=== PATIENT | male | born 1970 | race Caucasian/White ===

== ENCOUNTER 2018-05-17 05:54 | Inpatient (IN) | payer MEDICAID ==
[~2018-05-17] VITALS: Ht 188 cm; Wt 104.3 kg
[~2018-05-17 05:54] MED LIST: ASPI-612 PO; ATOR20TA PO; CLOP75TA15 PO; LISI-603 PO; METO37.5 PO; OMEP20TA20 PO
--- NOTE | 2018-05-17 06:05 | NUR ---
Patient ambulated in ER with stable gait with the c/o intermittent CP for the past couple of days, SOB and dizziness. Patient is AAO x 4 and speaking in complete sentences. Patient states that he stopped taking his prescribed medications 8 months ago. Patient placed on monitor. Safe environment implemented.
[2018-05-17] MEDS ORDERED: NITROGLYCERIN OINT 1 GM PACKET TP ONE ×2 (06:12→06:15)
[2018-05-17] MEDS ORDERED: NITROGLYCERIN 0.4 MG/TAB BOTTLE SL ONE ×2 (06:12→06:15)
[2018-05-17] MEDS ORDERED: ASPIRIN 81 MG TAB.CHEW ONE (06:12)
[2018-05-17] MEDS ORDERED: ASPIRIN 81 MG TAB.CHEW PO ONE (06:15)
[2018-05-17 06:29] LABS: BASOPHILS # (AUTO) 0.1 K/uL (0.0-8.0); BASOPHILS % (AUTO) 1.3 % (0.0-2.0); EOSINOPHILS # (AUTO) 0.2 K/uL (0.0-0.7); EOSINOPHILS % (AUTO) 2.4 % (0.0-7.0); HEMATOCRIT 47.9 % (36.7-47.1); HEMOGLOBIN 16.5 g/dL (12.5-16.3); LYMPHOCYTES # (AUTO) 2.4 K/uL (20.0-40.0); LYMPHOCYTES % (AUTO) 29.8 % (20.5-51.5); MEAN CORPUSCULAR HEMOGLOBIN 30.9 uug (23.8-33.4); MEAN CORPUSCULAR HGB CONC 34 g/dL (32.5-36.3); MEAN CORPUSCULAR VOLUME 89.8 fL (73.0-96.2); MONOCYTES # (AUTO) 0.4 K/uL (2.0-10.0); MONOCYTES % (AUTO) 5.2 % (0.0-11.0); NEUTROPHILS # (AUTO) 4.9 K/uL (1.8-8.9); NEUTROPHILS % (AUTO) 61.3 % (38.5-71.5); PLATELET COUNT (AUTO) 234 K/uL (152-348); RED BLOOD CELL COUNT(AUTO) 5.33 MIL/uL (4.06-5.63)
[2018-05-17 06:34] LABS: CREATININE 1.2 mg/dL (0.6-1.3); POTASSIUM 4.3 mmol/L (3.5-5.1)
[2018-05-17 06:46] LABS: BILIRUBIN,DIRECT 0.1 mg/dL (0.0-0.2); BILIRUBIN,TOTAL 0.3 mg/dL (0.2-1.0); TOTAL PROTEIN, SERUM 6.9 g/dL (6.4-8.2)
--- NOTE | 2018-05-17 07:03 | NUR ---
EPIC paged for panel call.
--- NOTE | 2018-05-17 07:09 | NUR ---
Hands off report to Austin MCCORMICK
--- NOTE | 2018-05-17 07:10 | NUR ---
brien gonzalez,reimbursement director at bedside.pt admitted to tele.
--- NOTE | 2018-05-17 07:19 | NUR ---
recieved pt in bed, awake. pt denies any cp or dizziness at this time.
--- NOTE | 2018-05-17 07:34 | NUR ---
breakfast provided for pt.
--- NOTE | 2018-05-17 08:10 | NUR ---
Patient received from ER, oriented to room and die setter applied. patient in no distress, and stated that he is only here to get medication refills since he is out of medications.
[2018-05-17] MEDS ORDERED: ACETAMINOPHEN 325 MG TABLET PO PRN (08:45)
[2018-05-17] MEDS ORDERED: ONDANSETRON 4 MG/2 ML VIAL IV PRN (08:45)
[2018-05-17] MEDS ORDERED: ZOLPIDEM 5 MG TABLET PO PRN (08:45)
[2018-05-17] MEDS ORDERED: MAGNESIUM HYDROXIDE 30 ML LIQUID UDC PO PRN (08:45)
[2018-05-17] MEDS ORDERED: HYDROCODONE/APAP 5-325MG TABLET PO PRN (08:45)
[2018-05-17] MEDS ORDERED: MORPHINE SULFATE 2 MG/1 ML DISP.SYRIN IV PRN (08:45)
[2018-05-17] MEDS ORDERED: ATORVASTATIN 20 MG TABLET PO SCH (08:45)
[2018-05-17 09:00] VITALS: BP 129/67
[2018-05-17] MEDS ORDERED: LISINOPRIL 20 MG TABLET PO SCH (09:00)
[2018-05-17] MEDS ORDERED: METOPROLOL TARTRATE 37.5 MG PO SCH (09:00)
[2018-05-17] MEDS ORDERED: CLOPIDOGREL 75 MG TABLET PO SCH (09:00)
[2018-05-17] MEDS ORDERED: ASPIRIN 325 MG TABLET PO SCH (09:00)
[2018-05-17] MEDS ORDERED: NICOTINE 14 MG/24HR PATCH TD SCH (09:00)
[2018-05-17] MEDS ORDERED: METOPROLOL TARTRATE 25 MG TABLET PO SCH (09:30)
[2018-05-17 09:34] LABS: MAGNESIUM 1.9 mg/dL (1.8-2.4); PHOSPHOROUS 3.7 mg/dL (2.5-4.9)
[2018-05-17 11:58] VITALS: BP 103/60
[2018-05-17] MEDS ORDERED: INFLUENZA VACCINE 2018-2019 0.5 ML DISP.SYRIN IM ONE (12:15)
[2018-05-17 14:30] VITALS: BP 100/66
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
[2018-05-17 15:50] VITALS: BP 100/66
[2018-05-18] MEDS ORDERED: PANTOPRAZOLE SODIUM 40 MG TABLET.DR PO SCH (07:00)
[2018-05-18] MEDS ORDERED: ASPIRIN EC 81 MG TABLET.DR PO SCH (09:00)
== END 2018-05-17 15:15 | disposition left against medical advice (07) | DRG 243 ==
LOC: ER 05:55 → TELE 07:55
PROVIDERS: ADMIT Nurse Practitioner Acute Care; ATTEND Nurse Practitioner Acute Care
DX: K21.9 Gastro-esophageal reflux disease without esophagitis (principal); D68.59 Other primary thrombophilia; E78.5 Hyperlipidemia, unspecified; I25.10 Atherosclerotic heart disease of native coronary artery without angina pectoris; I25.2 Old myocardial infarction; F17.210 Nicotine dependence, cigarettes, uncomplicated; F31.9 Bipolar disorder, unspecified; F90.9 Attention-deficit hyperactivity disorder, unspecified type; I10 Essential (primary) hypertension; F43.10 Post-traumatic stress disorder, unspecified; Z95.5 Presence of coronary angioplasty implant and graft; Z80.6 Family history of leukemia; Z82.49 Family history of ischemic heart disease and other diseases of the circulatory system; R73.9 Hyperglycemia, unspecified; Z91.14 Patient's other noncompliance with medication regimen; R06.09 Other forms of dyspnea; F15.90 Other stimulant use, unspecified, uncomplicated
CPT/HCPCS: 36415; 70030-TC; 71045; 83735; 84100; 85025; 85730; 93005; 93307; A4663; G0378

== ENCOUNTER 2020-01-11 01:51 | Emergency (ER) | payer MEDICAID ==
[~2020-01-11] VITALS: Ht 188 cm; Wt 104.3 kg
[2020-01-11] MEDS ORDERED: CEFTRIAXONE 1 G in IV DEXTROSE 5% 50 ML IV ONE (02:30)
[2020-01-11] MEDS ORDERED: KETOROLAC TROMETHAMINE 15 MG INJ IVP ONE (02:30)
[2020-01-11] MEDS ORDERED: VANCOMYCIN IV 1,000 MG in IV DEXTROSE 5% 250 ML IV ONE (02:30)
[2020-01-11] MEDS ORDERED: KETOROLAC TROMETHAMINE 15 MG INJ ONE (02:33)
[2020-01-11] MEDS ORDERED: CEFTRIAXONE /D5W 50ML IVPB **ER PYXIS IV ONE (02:33)
[2020-01-11] MEDS ORDERED: VANCOMYCIN IV 200 ML ONE (02:35)
[2020-01-11 02:44] LABS: BASOPHILS # (AUTO) 0.1 K/uL (0.0-8.0); BASOPHILS % (AUTO) 0.9 % (0.0-2.0); CREATININE 1.1 mg/dL (0.6-1.3); EOSINOPHILS # (AUTO) 0.2 K/uL (0.0-0.7); EOSINOPHILS % (AUTO) 2.7 % (0.0-7.0); HEMATOCRIT 42.7 % (36.7-47.1); HEMOGLOBIN 14.7 g/dL (12.5-16.3); LYMPHOCYTES # (AUTO) 2.4 K/uL (20.0-40.0); LYMPHOCYTES % (AUTO) 29.6 % (20.5-51.5); MEAN CORPUSCULAR HEMOGLOBIN 31.3 uug (23.8-33.4); MEAN CORPUSCULAR HGB CONC 35 g/dL (32.5-36.3); MEAN CORPUSCULAR VOLUME 90.6 fL (73.0-96.2); MONOCYTES # (AUTO) 0.8 K/uL (2.0-10.0); MONOCYTES % (AUTO) 9.8 % (0.0-11.0); NEUTROPHILS # (AUTO) 4.6 K/uL (1.8-8.9); PLATELET COUNT (AUTO) 232 K/uL (152-348); POTASSIUM 3.9 mmol/L (3.5-5.1); RED BLOOD CELL COUNT(AUTO) 4.71 MIL/uL (4.06-5.63)
[2020-01-11 02:50] LABS: BILIRUBIN,DIRECT 0.1 mg/dL (0.0-0.2); BILIRUBIN,TOTAL 0.5 mg/dL (0.2-1.0); TOTAL PROTEIN, SERUM 6.6 g/dL (6.4-8.2)
[2020-01-11] MEDS ORDERED: METOCLOPRAMIDE HCL 10 MG/2 ML VIAL IV ONE (04:00)
[2020-01-11] MEDS ORDERED: diphenhydrAMINE 50 MG/1 ML VIAL IV ONE (04:00)
[2020-01-11] MEDS ORDERED: IV NORMAL SALINE 1000 ML BAG IV ONE (04:00)
[2020-01-11] MEDS ORDERED: MORPHINE SULFATE 4 MG/1 ML DISP.SYRIN IV ONE (04:00)
[2020-01-11] MEDS ORDERED: ONDANSETRON 4 MG/2 ML VIAL IV PRN (09:30)
[2020-01-11] MEDS ORDERED: HYDROCODONE/APAP 5-325MG TABLET PO PRN (09:30)
[2020-01-11] MEDS ORDERED: IV NS 1000 ML 1,000 ML IV PRN (09:30)
[2020-01-11] MEDS ORDERED: HYDROCODONE/APAP 10-325 MG TABLET PO PRN (09:30)
[2020-01-11] MEDS ORDERED: MAGNESIUM HYDROXIDE 30 ML LIQUID UDC PO PRN (09:30)
[2020-01-11] MEDS ORDERED: ACETAMINOPHEN 325 MG TABLET PO PRN (09:30)
[2020-01-11] MEDS ORDERED: Z GUARD REMEDY PASTE 57 GM TUBE TOP PRN (09:30)
[2020-01-11 10:36] VITALS: BP 161/93
[2020-01-11] MEDS ORDERED: METOPROLOL TARTRATE 37.5 MG PO SCH (17:00)
[2020-01-11] MEDS ORDERED: METOPROLOL TARTRATE 25 MG TABLET PO SCH (21:00)
[2020-01-11] MEDS ORDERED: DOCUSATE SODIUM 100 MG CAPSULE PO SCH (21:00)
[2020-01-11] MEDS ORDERED: ATORVASTATIN 20 MG TABLET PO SCH (21:00)
[2020-01-12] MEDS ORDERED: PANTOPRAZOLE SODIUM 40 MG TABLET.DR PO SCH (07:00)
[2020-01-12] MEDS ORDERED: ASPIRIN 325 MG TABLET PO SCH (09:00)
[2020-01-12] MEDS ORDERED: CLOPIDOGREL 75 MG TABLET PO SCH (09:00)
[2020-01-12] MEDS ORDERED: LISINOPRIL 20 MG TABLET PO SCH (09:00)
== END 2020-01-11 10:32 | disposition left against medical advice (07) ==
LOC: ER 01:55
DX: L03.114 Cellulitis of left upper limb (principal); M25.522 Pain in left elbow; I25.2 Old myocardial infarction; I25.10 Atherosclerotic heart disease of native coronary artery without angina pectoris; E78.5 Hyperlipidemia, unspecified; I10 Essential (primary) hypertension; K21.9 Gastro-esophageal reflux disease without esophagitis; Z79.02 Long term (current) use of antithrombotics/antiplatelets; Z79.899 Other long term (current) drug therapy; Z91.19 Patient's noncompliance with other medical treatment and regimen; Z20.828 Contact with and (suspected) exposure to other viral communicable diseases
CPT/HCPCS: 36415; 73080; 80048; 80076; 83605; 85025; 87426; 96365; 96366; 96375; 99284; J0696; J1885; J3370; A4663; J7030

== ENCOUNTER 2020-02-10 23:07 | Emergency (ER) | payer MEDICAID ==
[~2020-02-10] VITALS: Ht 188 cm; Wt 104.3 kg
--- NOTE | 2020-02-10 23:29 | NUR ---
DR SNOWDEN INTO EVAL PATIENT.
--- NOTE | 2020-02-10 23:48 | NUR ---
Patient discharged to home in stable condition. Written and verbal after care instructions given. Patient verbalizes understanding of instructions. Stressed follow up or return to ER for worsening s/s.
== END 2020-02-10 23:48 | disposition home or self-care (01) ==
LOC: ER 23:09
DX: L03.116 Cellulitis of left lower limb (principal); I25.2 Old myocardial infarction; I25.10 Atherosclerotic heart disease of native coronary artery without angina pectoris; I10 Essential (primary) hypertension; Z79.02 Long term (current) use of antithrombotics/antiplatelets; E78.5 Hyperlipidemia, unspecified; Z79.82 Long term (current) use of aspirin; Z79.899 Other long term (current) drug therapy; Z82.49 Family history of ischemic heart disease and other diseases of the circulatory system; Z80.6 Family history of leukemia
CPT/HCPCS: A4663

== ENCOUNTER 2020-09-30 17:36 | Emergency (ER) | payer MEDICAID ==
[~2020-09-30] VITALS: Ht 188 cm; Wt 104.3 kg
[~2020-09-30 17:36] MED LIST changes: -LISI-603 PO; +LISI20TA30 PO
[2020-09-30] MEDS ORDERED: ASPI81TA31 PO (17:59)
--- NOTE | 2020-09-30 18:55 | NUR ---
Dr. Kam at bedside for MSE.
[2020-09-30 19:53] VITALS: BP 143/93
== END 2020-09-30 19:53 | disposition home or self-care (01) ==
LOC: ER 17:38
DX: M79.675 Pain in left toe(s) (principal); S97.11 Crushing injury of great toe; W20.8XXS Other cause of strike by thrown, projected or falling object, sequela; I10 Essential (primary) hypertension; F17.210 Nicotine dependence, cigarettes, uncomplicated; I25.2 Old myocardial infarction; I25.10 Atherosclerotic heart disease of native coronary artery without angina pectoris; E78.5 Hyperlipidemia, unspecified; Z79.82 Long term (current) use of aspirin; Z79.899 Other long term (current) drug therapy; Z79.02 Long term (current) use of antithrombotics/antiplatelets
CPT/HCPCS: 73630; A4663

== ENCOUNTER 2020-12-18 00:22 | Emergency (ER) | payer MEDICAID ==
[~2020-12-18] VITALS: Ht 188 cm; Wt 104.3 kg
[~2020-12-18 00:22] MED LIST changes: -ASPI-612 PO; +ASPI81TA31 PO; -ATOR20TA PO; -CLOP75TA15 PO; -LISI20TA30 PO; -METO37.5 PO
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
--- NOTE | 2020-12-18 00:41 | NUR ---
DR. EDWARDS AT [facility] IN PROGRESS.
--- NOTE | 2020-12-18 00:48 | NUR ---
Patient does not wish to proceed with medical care recommended by Dr. Garcia. Patient given information related to possible complications, up to and including , which could occur as a result of leaving the hospital at this time. Patient verbalizes understanding of risks involved due to leaving against medical advice. Patient has signed AMA form. No changes to LOC. Steady gait.
[2020-12-18 00:54] VITALS: BP 152/113
== END 2020-12-18 00:50 | disposition left against medical advice (07) ==
LOC: ER 00:26
DX: R07.9 Chest pain, unspecified (principal); Z53.29 Procedure and treatment not carried out because of patient's decision for other reasons; I25.2 Old myocardial infarction; E78.5 Hyperlipidemia, unspecified; F31.9 Bipolar disorder, unspecified; F43.10 Post-traumatic stress disorder, unspecified; Z79.82 Long term (current) use of aspirin; Z80.6 Family history of leukemia; Z82.49 Family history of ischemic heart disease and other diseases of the circulatory system
CPT/HCPCS: A4663

== ENCOUNTER 2022-08-11 04:36 | Emergency (ER) | payer MEDICAID ==
[~2022-08-11] VITALS: Ht 188 cm; Wt 104.3 kg
--- NOTE | 2022-08-11 05:00 | NUR ---
PT AMB TO RM 4B WITH UNSTEADY GAIT.
[2022-08-11 05:30] LABS: HEMATOCRIT 47.3 % (36.7-47.1); MEAN CORPUSCULAR HEMOGLOBIN 30.7 uug (23.8-33.4); MEAN CORPUSCULAR VOLUME 89.5 fL (73.0-96.2); PLATELET COUNT (AUTO) 223 K/uL (152-348)
[2022-08-11 05:44] LABS: CARBON DIOXIDE 31 mmol/L (21-32); CHLORIDE 103 mmol/L (98-107); CREATININE 1.1 mg/dL (0.6-1.3); GLUCOSE 102 mg/dL (74-106); POTASSIUM 3.9 mmol/L (3.5-5.1); UREA NITROGEN, BLOOD 14 mg/dL (7-18)
[2022-08-11] MEDS ORDERED: ATOR20TA PO (05:50)
[2022-08-11] MEDS ORDERED: LISI10TA29 PO (05:50)
[2022-08-11 05:55] LABS: ALANINE AMINOTRANSFERASE 22 U/L (16-63); ALKALINE PHOSPHATASE 95 U/L (50-136); ASPARTATE AMINOTRANSFERASE 16 U/L (15-37); BILIRUBIN,DIRECT 0.1 mg/dL (0.0-0.2); BILIRUBIN,TOTAL 0.3 mg/dL (0.2-1.0); TOTAL PROTEIN, SERUM 7.1 g/dL (6.4-8.2)
[2022-08-11] MEDS ORDERED: ASPI-612 PO (06:11)
[2022-08-11] MEDS ORDERED: MECL-159 PO (06:11)
--- NOTE | 2022-08-11 06:41 | NUR ---
PT TAKEN TO CT VIA RJODEE.
[2022-08-11] MEDS: CLONIDINE HCL 0.1 MG TABLET PO ONE (06:50)
[2022-08-11] MEDS: ACETAMINOPHEN 325 MG TABLET PO ONE (06:50)
[2022-08-11] MEDS: MECLIZINE HCL 25 MG TABLET PO ONE (06:50)
[2022-08-11] MEDS ORDERED: ACETAMINOPHEN 325 MG TABLET ONE (06:57)
[2022-08-11] MEDS ORDERED: MECLIZINE HCL 25 MG TABLET ONE (06:57)
[2022-08-11] MEDS ORDERED: CLONIDINE HCL 0.1 MG TABLET ONE (06:58)
--- NOTE | 2022-08-11 07:15 | NUR ---
REPORT GIVEN TO CHAUNCEY MCCORMICK.
--- NOTE | 2022-08-11 07:31 | NUR ---
Patient resting in bed,states he feels much better, denies any pain or discomfort at this time. Updated on plan of care, HL remains intact, a/o x4 no respiratory distress, abd soft, non tender to palpation with positive bowel sounds noted. Awaiting MD re-eval, will continue to monitor.
--- NOTE | 2022-08-11 07:31 | NUR ---
Pt in stable condition. Safety measures in place. Will continue to monitor.
--- NOTE | 2022-08-11 07:42 | NUR ---
Patient discharged to home in stable condition. Written and verbal after care instructions given. Patient verbalizes understanding of instructions. Was provided reports of imaging and labs as well as EKG. Stressed follow up or return to ER for worsening s/s.
--- NOTE | 2022-08-11 07:43 | NUR ---
ACI given, HL removed, remains stable for discharge home.
[2022-08-11 07:45] VITALS: BP 155/93
== END 2022-08-11 07:47 | disposition home or self-care (01) ==
LOC: ER 04:47
DX: R42 Dizziness and giddiness (principal); R51.9 Headache, unspecified; I10 Essential (primary) hypertension; R07.89 Other chest pain; I25.10 Atherosclerotic heart disease of native coronary artery without angina pectoris; I25.2 Old myocardial infarction; E78.5 Hyperlipidemia, unspecified; F17.210 Nicotine dependence, cigarettes, uncomplicated; Z79.82 Long term (current) use of aspirin; Z79.899 Other long term (current) drug therapy
CPT/HCPCS: 99285; 70450; 71045; 80076; 80048; 85025; 84484; 36415; 93005; J7040; A4663; J8597

== ENCOUNTER 2022-10-22 13:09 | Emergency (ER) | payer MEDICAID ==
[~2022-10-22] VITALS: Ht 188 cm; Wt 104.3 kg
[~2022-10-22 13:09] MED LIST changes: +ASPI-612 PO; -ASPI81TA31 PO; +ATOR20TA PO; +LISI10TA29 PO; +MECL-159 PO; -OMEP20TA20 PO
[2022-10-22 13:20] VITALS: O2SAT 98
[2022-10-22 13:57] LABS: HEMATOCRIT 41.1 % (36.7-47.1); MEAN CORPUSCULAR HEMOGLOBIN 30.2 uug (23.8-33.4); MEAN CORPUSCULAR VOLUME 90.8 fL (73.0-96.2); PLATELET COUNT (AUTO) 224 K/uL (152-348)
[2022-10-22 14:05] LABS: CREATININE 0.9 mg/dL (0.6-1.3); POTASSIUM 3.8 mmol/L (3.5-5.1)
[2022-10-22 14:11] LABS: BILIRUBIN,TOTAL 0.5 mg/dL (0.2-1.0); TOTAL PROTEIN, SERUM 6.4 g/dL (6.4-8.2)
== END 2022-10-22 18:31 | disposition left against medical advice (07) ==
LOC: ER 13:09
DX: L03.113 Cellulitis of right upper limb (principal); M00.9 Pyogenic arthritis, unspecified; I25.10 Atherosclerotic heart disease of native coronary artery without angina pectoris; I25.2 Old myocardial infarction; E78.5 Hyperlipidemia, unspecified; F17.210 Nicotine dependence, cigarettes, uncomplicated; Z79.82 Long term (current) use of aspirin; Z79.899 Other long term (current) drug therapy
CPT/HCPCS: 36415; 73080; 85025; 85651; 86140; 87040; A4663